=== PATIENT | female | born 1940 | race Caucasian/White ===

== ENCOUNTER 2017-02-12 14:39 | Outpatient (CLI) | payer MEDICARE ==
--- NOTE | 2017-02-12 16:20 | NUR ---
1620--MEDICAL HISTORY OBTAINED FROM [facility]DS. ZAC WOODRUFF
[2017-02-12 16:27] VITALS: BP 157/83
--- NOTE | 2017-02-12 17:05 | NUR ---
1640 REPORT FROM KELLY HAMILTON RN. PT. ON O2 AT 2L NC, A/A, SMILES WHEN SPOKEN TO ANSWERS YES TO EVERY QUESTION ASKED. HAS AUDIBLE RESPIRATIONS, HAS BRAXTON DRAINING YELLOW URINE. HAS IV RIGHT HAND. 1700 1ST UNIT BLOOD CHECKED AT BEDSIDE BY THIS NURSE AND ERICA REINA RN, INITIATED BY ALARIS PUMP AT 50/CC/HR. HGB7.6 HCT 23.4
--- NOTE | 2017-02-12 17:21 | NUR ---
1715 BLOOD INFUSING, IV SITE PATENT, RATE INCREASED TO 75/CC/HR, PT'S EYES OPEN, NO PROBLEMS NOTED.
--- NOTE | 2017-02-12 17:46 | NUR ---
1745 PT. DOSING. RATE INCREASED TO 125/CC/HR.
--- NOTE | 2017-02-12 18:24 | NUR ---
1815 RATE INCREASED TO 150/CC/HR, IV SITE LEAKING, TIGHTED, RATE DECREASED TO 125/CC/HR. PT. REPOSITIONED.
--- NOTE | 2017-02-12 18:57 | NUR ---
1645 PT DID NOT LIKE REPOSITIONING AND YELLING, REPOSITIONED. RATE INCREASED TO 150/CC/HR. NO FUTHER LEAKING NOTED AT IV SITE.
--- NOTE | 2017-02-12 19:25 | NUR ---
192 REPORT PHONED TO Connie RUIZ RN, TRANSFERRED TO 2218 BY BED RATE DECREASED TO 125/CC/HR.
--- NOTE | 2017-02-12 19:58 | NUR ---
REC'D FROM [facility] DEPT PER BED TO ROOM 2218 FOR BLOOD TRANSFUSION. PER SERVICES DR. SANCHEZ DX ANEMIA. A 77 Y/O W/FE. FIRST UNIT BLOOD ALMOST COMPLETE AND HANGING. PLACED ON VS MACHINE.
--- NOTE | 2017-02-12 20:00 | NUR ---
SECOND UNIT OF [facility]S HUNG PER PROTOCAL. WILL CONTINUE TO MONITOR VS DURING TRANSFUSION.
--- NOTE | 2017-02-12 20:30 | NUR ---
NO REACTION FROM TRANSFUSION CONTINUES TO INFUSE TO RT HAND.
--- NOTE | 2017-02-12 21:30 | NUR ---
TRANSFUSION CONTINUES TO INFUSE NO REACTION SEEN.
--- NOTE | 2017-02-12 23:15 | NUR ---
SECOND UNIT OF [facility]S COMPLETED NO REACTION NS INFUSING TO FLUSH LINE.. NOTIFIED [facility] OF PATIENT'S RETURN BACK TO [place].
--- NOTE | 2017-02-12 23:50 | NUR ---
NOTIFIED [facility] FOR TRANFER BACK TO [facility].IV REMOVED WITH TIP INTACT.PREPARED PATIENT FOR TRANSFER BACK TO [place].
--- NOTE | 2017-02-13 00:10 | NUR ---
[facility] HERE FOR TRANSFER.
== END 2017-02-13 00:10 | disposition other institution (70) ==
LOC: EDBD 14:39 → D.OPS 14:39 → D.MS 19:27 → D.OPS 02-13 00:10
DX: D64.9 Anemia, unspecified (principal); F25.9 Schizoaffective disorder, unspecified; F31.9 Bipolar disorder, unspecified; M62.81 Muscle weakness (generalized); R47.01 Aphasia